=== PATIENT | male | born 1935 | race Caucasian/White ===

== ENCOUNTER 2021-08-20 05:14 | Inpatient (IN) | payer MEDICARE, BC ==
[~2021-08-20] VITALS: Ht 172.7 cm; Wt 82.0 kg
[2021-08-20 05:45] VITALS: BP 143/76
[2021-08-20] MEDS ORDERED: magnesium 4gm in 100ml NS 100 ML IV PRN (05:55)
[2021-08-20] MEDS ORDERED: nitroGLYCERIN 0.4mg SUBLingual tab SL PRN (05:55)
[2021-08-20] MEDS ORDERED: potassium CL 10mEq/100ml bag 100 ML IV PRN (05:55)
[2021-08-20] MEDS ORDERED: HYDROcodone/acetaminophen 5mg/325mg tablet PO PRN (05:55)
[2021-08-20] MEDS ORDERED: metoprolol tartrate 1mg/ml inj IV PRN (05:55)
[2021-08-20] MEDS ORDERED: magnesium Cl slow-release 64mg tablet PO PRN (05:55)
[2021-08-20] MEDS ORDERED: ondansetron/PF 4mg/2ml inj IV PRN (05:55)
[2021-08-20] MEDS ORDERED: morphine 2 MG/ML inj. syringe IV PRN (05:55)
[2021-08-20] MEDS ORDERED: regadenoson 0.4mg/5ml syringe IV PRN (05:55)
[2021-08-20] MEDS ORDERED: aminophylline 250mg/10ml inj. IV PRN (05:55)
[2021-08-20] MEDS ORDERED: acetaminophen 325mg tablet PO PRN ×2 (05:55)
[2021-08-20] MEDS ORDERED: potassium Cl 20 mEq SR tablet PO PRN ×2 (05:55)
[2021-08-20] MEDS ORDERED: magnesium 2GM in 50ml NS 50 ML IV PRN (05:55)
--- NOTE | 2021-08-20 06:02 | NUR ---
Pt is an 86 year old male transferred via helicopter from [facility] that is a direct admission that is COVID - 19 Positive & syncopal episode and fell at home, Awake, alert,oriented to name only. Iv Heparin drip infusing in RAC #20g & #18g in LFA saline lock. Pt has not been seen via Dr. Zavala as yet stated she will return to see this patient.pt has raw skin to head of the penis..pt made comfortable in bed with side rails up x2.
[2021-08-20] MEDS ORDERED: heparin 10,000 units/1 ML INJ IV PRN (06:05)
[2021-08-20] MEDS ORDERED: heparin 10,000 units/1 ML INJ IV ONE ×2 (06:05→08:25)
--- NOTE | 2021-08-20 06:34 | NUR ---
Problems reprioritized. Patient report given, questions answered & plan of care reviewed with Jannet.
[2021-08-20 07:14] LABS: BASOPHILS % (AUTO) 0.2 % (0-1); EOSINOPHILS % (AUTO) 0 % (0-6); HEMATOCRIT 42.2 % (42.0-52.0); HEMOGLOBIN 14.7 g/dl (14.0-17.9); LYMPHOCYTES # (AUTO) 0.7 X10'3 (1.1-4.8); LYMPHOCYTES % (AUTO) 8.2 % (21-51); MEAN CORPUSCULAR HEMOGLOBIN 31.4 PG (27.0-31.0); MEAN CORPUSCULAR HGB CONC 34.9 g/dL (33.0-36.5); MEAN CORPUSCULAR VOLUME 89.9 FL (78-98); MEAN PLATELET VOLUME 8.1 FL (7.4-10.4); MONOCYTES # (AUTO) 0.9 X10'3 (0-0.9); MONOCYTES % (AUTO) 11.2 % (2-12); NEUTROPHILS # (AUTO) 6.4 X10'3 (1.8-7.7); NEUTROPHILS % (AUTO) 80.4 % (42-75); PLATELET COUNT 199 X10'3 (140-440); RED BLOOD COUNT 4.69 X10'6 (4.70-6.10); RED CELL DISTRIBUTION WIDTH 13.9 % (11.5-14.5)
[2021-08-20 07:20] LABS: APTT 47 SECONDS (22-32)
[2021-08-20] MEDS: K and/or MAG REPLACEMENT MC SCH ×2 (08:00→20:00)
[2021-08-20 10:00] VITALS: BP 116/63
[2021-08-20] MEDS ORDERED: ESOM40CA49 PO (13:37)
[2021-08-20] MEDS ORDERED: AMLO5TAB4 PO (13:38)
[2021-08-20] MEDS ORDERED: LEVO50TA PO (13:38)
--- NOTE | 2021-08-20 13:43 | NUR ---
Med rec done, paged to address.
[2021-08-20] MEDS ORDERED: LISI5TAB22 PO (14:28)
--- NOTE | 2021-08-20 17:45 | NUR ---
Mr Pardo has been assessed as indicated. He has been very pleasant and cooperative. He continues to deny pain. He is on a Heparin drip and tolerates this medication well. He has been therapeutic for the lat 2 PTT level check and results for the next check are pending at this time. He has no s/s of excessive bleeding. He did have a 2D echo today. He will not have a odalis scan as his cardiac enzymes have increased and he is positive for covid at this time. He is resting quietly at this time
[2021-08-20 18:00] VITALS: BP 131/64
--- NOTE | 2021-08-20 18:30 | NUR ---
Problems reprioritized. Patient report given, questions answered & plan of care reviewed with JARED HERNANDEZ.
[2021-08-20] MEDS: normal saline 1000ml 1,000 ML IV SCH (19:54)
[2021-08-20] MEDS ORDERED: temazepam 15mg capsule PO PRN (21:00)
[2021-08-20] MEDS: carVEDilol 3.125mg tablet PO SCH (21:03)
[2021-08-20 22:00] VITALS: BP 141/75
[2021-08-20] MEDS: heparin 25,000 UNIT/250ml bag 250 ML IV SCH ×2 (22:27→22:28)
--- NOTE | 2021-08-21 00:24 | NUR ---
upon assessment noted patient has redness to bilateral groin skin barrier applied and also redness on tip of pennis
[2021-08-21 02:00] VITALS: BP 142/72
--- NOTE | 2021-08-21 03:45 | NUR ---
PTT result 87 infusion hold for 60 minutes at this time.
--- NOTE | 2021-08-21 03:47 | NUR ---
PTT result 87 infusion hold for 60 minutes at this time
[2021-08-21 06:00] VITALS: BP 130/59
[2021-08-21] MEDS: aspirin 81mg tab.chew PO SCH (07:38)
[2021-08-21] MEDS: levoTHYROXINE 25mcg tablet PO SCH (07:39)
[2021-08-21] MEDS: atorvastatin 20mg tablet PO SCH (07:39)
[2021-08-21] MEDS: carVEDilol 3.125mg tablet PO SCH ×2 (07:39→20:00)
[2021-08-21] MEDS: pantoprazole 40mg Tablet.DR PO SCH (07:39)
[2021-08-21 07:43] LABS: BASOPHILS % (AUTO) 0.6 % (0-1); EOSINOPHILS % (AUTO) 0 % (0-6); LYMPHOCYTES # (AUTO) 1.7 X10'3 (1.1-4.8); LYMPHOCYTES % (AUTO) 23.5 % (21-51); MEAN CORPUSCULAR HEMOGLOBIN 31.2 PG (27.0-31.0); MEAN CORPUSCULAR HGB CONC 34.1 g/dL (33.0-36.5); MEAN CORPUSCULAR VOLUME 91.6 FL (78-98); MEAN PLATELET VOLUME 8.2 FL (7.4-10.4); MONOCYTES # (AUTO) 0.9 X10'3 (0-0.9); MONOCYTES % (AUTO) 12.2 % (2-12); NEUTROPHILS # (AUTO) 4.7 X10'3 (1.8-7.7); NEUTROPHILS % (AUTO) 63.7 % (42-75); PLATELET COUNT 194 X10'3 (140-440); RED CELL DISTRIBUTION WIDTH 14.1 % (11.5-14.5); WHITE BLOOD COUNT 7.4 X10'3 (4.5-11.0)
[2021-08-21] MEDS ORDERED: non-formulary drug (Esomeprazole Magnesium (Nexium) 1 CAP) PO SCH (08:00)
[2021-08-21] MEDS: K and/or MAG REPLACEMENT MC SCH ×2 (08:00→20:00)
[2021-08-21] MEDS ORDERED: AMLO5TAB16 PO (08:05)
[2021-08-21 08:08] LABS: ALANINE AMINOTRANSFERASE 58 U/L (12-78); ALBUMIN 3.5 G/DL (3.4-5.0); ALKALINE PHOSPHATASE 63 IU/L (46-116); ANION GAP 9 (8-16); ASPARTATE AMINO TRANSFERASE 183 U/L (10-37); BILIRUBIN,TOTAL 0.4 MG/DL (0.1-1.0); BLOOD UREA NITROGEN 19 MG/DL (7-18); CALCIUM 8.4 MG/DL (8.5-10.1); CHLORIDE 105 MMOL/L (99-107); GLUCOSE 87 MG/DL (70-104); SODIUM 142 MMOL/L (135-145); TOTAL CARBON DIOXIDE 27.6 MMOL/L (24-32); eGFR 71 ML/MIN
[2021-08-21 10:00] VITALS: BP 112/74
[2021-08-21 14:00] VITALS: BP 131/73
[2021-08-21 18:00] VITALS: BP 132/59
[2021-08-21] MEDS ORDERED: REMDESIVIR INJ 200 MG in normal saline 100ml IV soln 100 ML IV ONE (18:45)
[2021-08-21] MEDS ORDERED: iohexol 350MG/ML 100ml bottle IV ONE (19:03)
[2021-08-21] MEDS: DEXAMETHASONE 6 MG TABLET PO SCH (21:04)
[2021-08-21 21:26] LABS: D-DIMER 0.35 MG/L FEU (0-0.50)
[2021-08-21 21:47] VITALS: BP 138/88
[2021-08-22] MEDS: heparin 25,000 UNIT/250ml bag 250 ML IV SCH (00:43)
[2021-08-22 01:59] VITALS: BP 130/62
[2021-08-22 04:18] LABS: BASOPHILS % (AUTO) 0.3 % (0-1); EOSINOPHILS % (AUTO) 0 % (0-6); HEMATOCRIT 43.4 % (42.0-52.0); LYMPHOCYTES # (AUTO) 1.1 X10'3 (1.1-4.8); LYMPHOCYTES % (AUTO) 10.5 % (21-51); MEAN CORPUSCULAR HEMOGLOBIN 31.2 PG (27.0-31.0); MEAN CORPUSCULAR HGB CONC 34.5 g/dL (33.0-36.5); MEAN CORPUSCULAR VOLUME 90.4 FL (78-98); MEAN PLATELET VOLUME 8.4 FL (7.4-10.4); MONOCYTES # (AUTO) 0.4 X10'3 (0-0.9); MONOCYTES % (AUTO) 3.9 % (2-12); NEUTROPHILS # (AUTO) 8.9 X10'3 (1.8-7.7); NEUTROPHILS % (AUTO) 85.3 % (42-75); PLATELET COUNT 179 X10'3 (140-440); WHITE BLOOD COUNT 10.4 X10'3 (4.5-11.0)
[2021-08-22 04:28] LABS: D-DIMER 0.25 MG/L FEU (0-0.50)
[2021-08-22 04:40] LABS: ALANINE AMINOTRANSFERASE 59 U/L (12-78); ALBUMIN 3.3 G/DL (3.4-5.0); ALBUMIN/GLOBULIN RATIO 0.9 (1.1-1.5); ALKALINE PHOSPHATASE 60 IU/L (46-116); ANION GAP 10 (8-16); ASPARTATE AMINO TRANSFERASE 136 U/L (10-37); BILIRUBIN,TOTAL 0.4 MG/DL (0.1-1.0); BLOOD UREA NITROGEN 16 MG/DL (7-18); BUN/CREATININE RATIO 17.8 (5.4-32.0); C-REACTIVE PROTEIN 4.68 MG/DL (0.0-0.5); CHLORIDE 104 MMOL/L (99-107); GLUCOSE 133 MG/DL (70-104); POTASSIUM 3.7 MMOL/L (3.5-5.1); SODIUM 139 MMOL/L (135-145); TOTAL CARBON DIOXIDE 24.8 MMOL/L (24-32); TOTAL PROTEIN 6.9 G/DL (6.4-8.2); eGFR 80 ML/MIN
[2021-08-22] MEDS: normal saline 1000ml 1,000 ML IV SCH (05:55)
[2021-08-22 06:00] VITALS: BP 138/73
[2021-08-22] MEDS: K and/or MAG REPLACEMENT MC SCH ×2 (08:00→20:00)
[2021-08-22] MEDS: lisinopril 5mg tablet PO SCH (08:11)
[2021-08-22] MEDS: aspirin 81mg tab.chew PO SCH (08:11)
[2021-08-22] MEDS: levoTHYROXINE 25mcg tablet PO SCH (08:12)
[2021-08-22] MEDS: pantoprazole 40mg Tablet.DR PO SCH (08:12)
[2021-08-22] MEDS: atorvastatin 20mg tablet PO SCH (08:12)
[2021-08-22] MEDS: carVEDilol 3.125mg tablet PO SCH ×2 (08:12→19:52)
[2021-08-22] MEDS: DEXAMETHASONE 6 MG TABLET PO SCH ×2 (08:12→19:52)
[2021-08-22] MEDS: amLODIPine 5mg tablet PO SCH (08:13)
[2021-08-22 09:31] LABS: CHOLESTEROL 152 MG/DL (0-200); HDL CHOLESTEROL 51 MG/DL (35-60); LDL CHOLESTEROL 82 MG/DL (50-100); TRIGLYCERIDES 43 MG/DL (20-135)
[2021-08-22 10:00] VITALS: BP 134/82
[2021-08-22 18:00] VITALS: BP 104/65
[2021-08-22] MEDS ORDERED: REMDESIVIR INJ 100 MG in normal saline 100ml IV soln 100 ML IV SCH (19:00)
[2021-08-22] MEDS: enoxaparin 40mg/0.4ml syringe SUBCUT SCH (19:53)
[2021-08-22 22:00] VITALS: BP 113/68
[2021-08-23 02:00] VITALS: BP 126/67
[2021-08-23 06:00] VITALS: BP 140/71
[2021-08-23 07:29] LABS: BASOPHILS # (AUTO) 0.1 X10'3 (0-0.2); BASOPHILS % (AUTO) 0.5 % (0-1); EOSINOPHILS % (AUTO) 0 % (0-6); HEMATOCRIT 41.1 % (42.0-52.0); LYMPHOCYTES # (AUTO) 1.1 X10'3 (1.1-4.8); LYMPHOCYTES % (AUTO) 6.1 % (21-51); MEAN CORPUSCULAR HEMOGLOBIN 30.7 PG (27.0-31.0); MEAN CORPUSCULAR HGB CONC 34.1 g/dL (33.0-36.5); MEAN PLATELET VOLUME 8.8 FL (7.4-10.4); MONOCYTES # (AUTO) 0.7 X10'3 (0-0.9); MONOCYTES % (AUTO) 3.6 % (2-12); NEUTROPHILS # (AUTO) 16.5 X10'3 (1.8-7.7); NEUTROPHILS % (AUTO) 89.8 % (42-75); PLATELET COUNT 211 X10'3 (140-440); RED BLOOD COUNT 4.57 X10'6 (4.70-6.10); RED CELL DISTRIBUTION WIDTH 13.9 % (11.5-14.5); WHITE BLOOD COUNT 18.3 X10'3 (4.5-11.0)
[2021-08-23] MEDS: DEXAMETHASONE 6 MG TABLET PO SCH (07:32)
[2021-08-23] MEDS: pantoprazole 40mg Tablet.DR PO SCH (07:32)
[2021-08-23] MEDS: enoxaparin 40mg/0.4ml syringe SUBCUT SCH (07:32)
[2021-08-23] MEDS: lisinopril 5mg tablet PO SCH (07:32)
[2021-08-23] MEDS: carVEDilol 3.125mg tablet PO SCH (07:33)
[2021-08-23] MEDS: atorvastatin 20mg tablet PO SCH (07:33)
[2021-08-23] MEDS: amLODIPine 5mg tablet PO SCH (07:33)
[2021-08-23] MEDS: levoTHYROXINE 25mcg tablet PO SCH (07:33)
[2021-08-23] MEDS: K and/or MAG REPLACEMENT MC SCH (07:34)
[2021-08-23 07:38] LABS: D-DIMER 0.27 MG/L FEU (0-0.50)
[2021-08-23 07:51] LABS: ALANINE AMINOTRANSFERASE 67 U/L (12-78); ALBUMIN 3.3 G/DL (3.4-5.0); ALBUMIN/GLOBULIN RATIO 0.9 (1.1-1.5); ALKALINE PHOSPHATASE 60 IU/L (46-116); ANION GAP 11 (8-16); ASPARTATE AMINO TRANSFERASE 84 U/L (10-37); BILIRUBIN,TOTAL 0.4 MG/DL (0.1-1.0); BLOOD UREA NITROGEN 29 MG/DL (7-18); C-REACTIVE PROTEIN 6.66 MG/DL (0.0-0.5); CALCIUM 8.3 MG/DL (8.5-10.1); CHLORIDE 105 MMOL/L (99-107); CREATININE 0.88 MG/DL (0.60-1.10); GLUCOSE 124 MG/DL (70-104); POTASSIUM 3.7 MMOL/L (3.5-5.1); SODIUM 141 MMOL/L (135-145); TOTAL CARBON DIOXIDE 25.1 MMOL/L (24-32); TOTAL PROTEIN 6.9 G/DL (6.4-8.2); eGFR 82 ML/MIN
[2021-08-23 10:00] VITALS: BP 134/73
[2021-08-23] MEDS ORDERED: REMDESIVIR INJ 100 MG in normal saline 100ml IV soln 100 ML IV SCH (11:50)
[2021-08-23] MEDS: aspirin 81mg tab.chew PO SCH (12:26)
[2021-08-23] MEDS ORDERED: PRED20TA PO (12:42)
[2021-08-23] MEDS ORDERED: ASPI81TA53 PO (12:42)
[2021-08-23] MEDS ORDERED: COR3.125T PO (12:42)
[2021-08-23] MEDS ORDERED: ATOR20TA66 PO (12:42)
--- NOTE | 2021-08-23 15:00 | NUR ---
Patient discharge home alert and orient, discharge instruction discussed with the daughter.
== END 2021-08-23 15:00 | disposition home or self-care (01) | DRG 177 ==
LOC: UNDOADMIN 05:34 → ORTHO 4S 05:34
PROVIDERS: ADMIT Internal Medicine; ATTEND Family Medicine
PROC: B32T1ZZ Computerized Tomography (CT Scan) of Left Pulmonary Artery using Low Osmolar Contrast (ICD-10-PCS; principal; 2021-08-21)
PROC: B3201ZZ Computerized Tomography (CT Scan) of Thoracic Aorta using Low Osmolar Contrast (ICD-10-PCS; 2021-08-21)
PROC: B32S1ZZ Computerized Tomography (CT Scan) of Right Pulmonary Artery using Low Osmolar Contrast (ICD-10-PCS; 2021-08-21)
PROC: XW033E5 Introduction of Remdesivir Anti-infective into Peripheral Vein, Percutaneous Approach, New Technology Group 5 (ICD-10-PCS; 2021-08-22)
DX: U07.1 COVID-19 (principal); I21.4 Non-ST elevation (NSTEMI) myocardial infarction; J12.82 Pneumonia due to coronavirus disease 2019; N17.9 Acute kidney failure, unspecified; E03.9 Hypothyroidism, unspecified; Z96.659 Presence of unspecified artificial knee joint; R53.1 Weakness; I10 Essential (primary) hypertension; Z86.73 Personal history of transient ischemic attack (TIA), and cerebral infarction without residual deficits; Z88.2 Allergy status to sulfonamides; Z88.5 Allergy status to narcotic agent; Z88.0 Allergy status to penicillin; E78.5 Hyperlipidemia, unspecified
CPT/HCPCS: 36415; 71045; 71275; 80053; 80061; 83605; 84145; 84443; 84484; 85025; 85379; 85610; 85730; 86140; 87040; 87081; 93005; 93306; 97110; 97161; 97530; G0378; J1644; J1650; J3490; J7030; J8540; Q9967

== ENCOUNTER 2021-10-16 12:22 | Day surgery (SDC) | payer MEDICARE, BC ==
[~2021-10-16] VITALS: Ht 172.7 cm; Wt 78.0 kg
[2021-10-16] VITALS (9 sets, daily range): BP systolic 104–123; BP diastolic 62–73
[~2021-10-16 12:22] MED LIST: AMLO5TAB16 PO; ASPI81TA53 PO; ATOR20TA66 PO; COR3.125T PO; ESOM40CA49 PO; LEVO50TA PO; LISI5TAB22 PO
[2021-10-16] MEDS ORDERED: normal saline 1,000 ML IV SCH (12:45)
[2021-10-16] MEDS ORDERED: diphenhydrAMINE 25mg capsule PO PRN (12:45)
[2021-10-16] MEDS ORDERED: LORazepam 0.5 MG tablet PO PRN (12:45)
[2021-10-16] MEDS ORDERED: LIDOcaine/PRILOcaine 5gm cream TP ONE (12:55)
[2021-10-16] MEDS ORDERED: ASPI-1265 PO (13:17)
[2021-10-16] MEDS ORDERED: LEVO50TA8 PO (13:17)
[2021-10-16] MEDS ORDERED: CARV3.122 PO (13:17)
[2021-10-16] MEDS ORDERED: FLO0.4C (13:17)
[2021-10-16] MEDS ORDERED: ATOR20TA PO (13:19)
[2021-10-16] MEDS ORDERED: CLARITIN PO (13:19)
[2021-10-16] MEDS ORDERED: NEXIUM PO (13:19)
[2021-10-16] MEDS ORDERED: ALBU8HFA (13:21)
[2021-10-16] MEDS ORDERED: verapamil 2.5 mg/ml inj IV ONE (13:35)
[2021-10-16] MEDS ORDERED: nitroGLYCERIN-Tridil 50MG/D5W 250 ML IV ONE (13:35)
[2021-10-16] MEDS ORDERED: LIDOcaine 1% (10mg/ml)w/preservative inj. 20ml MDV ONE (13:36)
[2021-10-16] MEDS ORDERED: heparin 1,000unit/ml 10ml vial 10 ML ONE (13:36)
[2021-10-16] MEDS ORDERED: iohexol 350MG/ML 100ml bottle IV ONE (13:36)
[2021-10-16] MEDS ORDERED: midazolam 1 mg/ML 2ml injection ONE (13:36)
[2021-10-16] MEDS ORDERED: fentaNYL/PF 50MCG/1 ML 2ML syringe ONE (13:36)
== END 2021-10-16 17:45 | disposition home or self-care (01) ==
LOC: SSTAY O 12:22
PROVIDERS: ATTEND Internal Medicine Interventional Cardiology
DX: R94.39 Abnormal result of other cardiovascular function study (principal); R07.89 Other chest pain; I25.10 Atherosclerotic heart disease of native coronary artery without angina pectoris; E78.5 Hyperlipidemia, unspecified; I10 Essential (primary) hypertension; Z88.5 Allergy status to narcotic agent; Z88.0 Allergy status to penicillin; Z88.2 Allergy status to sulfonamides; Z79.82 Long term (current) use of aspirin; Z79.899 Other long term (current) drug therapy; Z96.651 Presence of right artificial knee joint; Z98.890 Other specified postprocedural states; Z86.16 Personal history of COVID-19
CPT/HCPCS: 93005; 93458; 99152; C1769; C1894; J1644; J2250; J3010; J3490; J7030; Q0163; Q9967; A4620